=== PATIENT | male | born 1985 | race Two or more races ===

== ENCOUNTER 2020-05-08 05:31 | Day surgery (SDC) | payer OTHER ==
--- NOTE | 2020-05-07 17:35 | Pre-Procedure Note/Attestation ---
Pre-Procedure Note/Attestation Complete Prior to Procedure Planned Procedure: bilateral Procedure Narrative: Septoplasty Submucous resection right inferior turbinate Submucous resection left inferior turbinate Indications for Procedure Pre-Operative Diagnosis: 1. Nasal septal deviation 2. Hypertrophied right inferior turbinate 3. Hypertrophied left inferior turbinate Attestation I attest that I discussed the nature of the procedure; its benefits; risks and complications; and alternatives (and the risks and benefits of such alternatives ), prior to the procedure, with the patient (or the patient's legal telemarketing sales representative). I attest that, if there was a reasonable possibility of needing a blood transfusion, the patient (or the patient's legal telemarketing sales representative) was given the [place] [employer] standardized written summary, pursuant to the [place] Jany Blood Safety Act ([place] Health and Safety Code # 1645, as amended). I attest that I re-evaluated the patient just prior to the surgery and that there has been no change in the patient's H&P. Jw Byrne MD May 07, 2020 17:35
--- NOTE | 2020-05-07 20:15 | History & Physical ---
History of Present Illness General Date patient seen: Apr 29, 2020 Time patient seen: 11:00 Reason for Hospitalization: outpt surgery-nasal Present Illness HPI Nasal airway ov=bstruction secondary to septal deviation and hypertrophied inferior turbinate. Failed nasal steroids and antimhistamines. Allergies: Coded Allergies: No Known Allergies (Unverified , 05/07/20) COVID-19 Screening Contact w/high risk pt: No Recent Travel to affected area: No Experienced COVID-19 symptoms?: No Medication History Scheduled Loratadine (Claritin), 10 MG ORAL DAILY, (Reported) Patient History History Provided By: Patient Healthcare decision maker Resuscitation status Full code Advanced Directive on File Patient History Narrative as above present history Review of Systems Review of Symptoms General ROS: no weight loss or fever Psychological ROS: no depression or mood changes, no memory loss Ophthalmic ROS: no visual changes or eye irritation ENT ROS: + nasal congestion, hearing loss, dizziness Allergy and Immunology ROS: no allergic symptoms or urticaria Hematological and Lymphatic ROS: no swollen glands, unusual bleeding or bruising Endocrine ROS: no polyuria, polydipsia, weight changes, temperature intolerance Respiratory ROS: no cough, shortness of breath, or wheezing Cardiovascular ROS: no chest pain or dyspnea on exertion Gastrointestinal ROS: denies abdominal pain, bright red blood in stool. Musculoskeletal ROS: no myalgias or arthralgias Neurological ROS: no TIA or stroke symptoms Dermatological ROS: no new or changing skin lesions, rashes or pruritis Physical Exam Physical Exam General appearance: alert, cooperative, no distress, appears stated age Head: Normocephalic, without obvious abnormality, atraumatic Eyes: conjunctivae/corneas clear. PERRL, EOM's intact. Fundi benign NOSE: SEPTAL DEVIATION, HYPERTROPHIED INFERIOR TURBINATES. Throat: Lips, mucosa, and tongue normal. Teeth and gums normal Neck: supple, symmetrical, trachea midline, no adenopathy, thyroid: not enlarged, symmetric, no tenderness/mass/nodules, no carotid bruit and no JVD Lungs: clear to auscultation bilaterally Heart: regular rate and rhythm, S1, S2 normal, no murmur, click, rub or gallop Abdomen: soft, non-tender. Bowel sounds normal. No masses, no organomegaly Extremities: extremities normal, atraumatic, no cyanosis or edema Pulses: 2+ and symmetric Skin: Skin color, texture, turgor normal. No rashes or lesions Neurologic: Grossly normal BP 120/80 HR 72 RR 13 Negative Covid-a9 test done at [facility] earlier in the week. No need, he is a healthy 34 yo male. Height (Feet): 6 Height (Inches): 1 Weight (Pounds): 200 Medications none Assessment/Plan Status: stable Assessment/Plan: Nasal septal deviation and hypertrophied inferior turbinates. MIPS Hospital declaration Disposition: Once the patient is stable to leave the hospital, I anticipate the patient will likely be discharged to the following environment: Home Estimated discharge date: 05/08/2020 I spent 70 minutes on this patient's case, and 30 minutes was dedicated to counseling and/or care coordination. MIPS ([employer]it-based Incentive Payment System) Applicable CPT: 97809, 67446 CHECK ALL THAT ARE MET: Measure #5 (CHF): All ages. Prescribe BRIDGETTE/ARB upon discharge for patients with left ventricular systolic dysfunction. If not, the reason is clearly documented in the medical chart. Measure #8 (CHF): All ages. Prescribe a beta kevin upon discharge for patients with left ventricular systolic dysfunction. If not, the reason is clearly documented in the medical chart. Measure #47 Advance care plan or surrogate decision maker documented in the medical record. Measure #130 The provider has documented, updated, or reviewed the patients current medication list and has documented it in the patients note. Measure #374 (All): Send report to referring provider. Measure #407(Sepsis due to MSSA bacteremia): Age 18+ Patient treated with a beta-lactam antibiotic (Nafcillin, Oxacillin or Cefazolin) as definitive therapy. MEDICAL COMPLEXITY High complexity medical decision making (need 2/3 categories) Problem - need 4 points Acute/new problem with new plan for workup (4 points, 1 max) Acute/new problem without additional workup (3 points, 1 max) Unstable chronic problem actively being managed (2 point each, 2 max) Stable chronic problem actively being managed (1 point each, 2 max) Self-limited/transient process (constipation, muscle ache, etc) (1 point each , 2 max) Data - need 4 points Reviewed labs/imaging studies (1 points, 2 max) Independent review of imaging (EKG, xrays, etc) (2 points, 2 max) Discussed case with consult/other MD/RN (2 points, 2 max) High Risk - qualify if have one of the following: Severe exacerbation of acute problem, acute mental status change, IV narcotics , monitoring drug levels (vancomycin, INR, tacrolimus etc) Jw Byrne MD May 07, 2020 20:15
--- NOTE | 2020-05-07 20:18 | Brief Operative Note ---
Immediate Post Operative Note Operative Note Pre-op Diagnosis: 1. Nasal septal deviation 2. Hypertrophied right inferior turbinate 3. Hypertrophied left inferior turbinate Procedure: 1. Septoplasty 2. Submucous resection right inferior turbinates 3. Submucous resection left inferior turbinates Post-op Diagnosis: same as pre-op Surgeon: Jw Byrne Mason Apprentice: none Additional Surgeons: none Anesthesiologist: Bre Anesthesia: general Specimen: none Complications: none Condition: stable Fluids: D5LR Estimated Blood Loss: volume - 25 Drains: none Packing: SinoNasal gel Implant(s) used?: No Jw Byrne MD May 07, 2020 20:18
--- NOTE | 2020-05-07 20:20 | Discharge Instructions ---
Discharge Instructions Discharge Instructions Follow up with: Dr. Byrne next week at his office. Diet: regular Resume Normal Activity?: No Activity: light activity Pneumonia Vaccine: pt refused vaccine Influenza Vaccine (Jun to Nov): pt refused vaccine Return to Work/School on: May 22, 2020 Special Instructions ice to face x 48 hours For Surgical Patients Dressing Care: may change May shower: No For Congestive Heart Failure Reminder Report to your physician any weight gain of 5 pounds or more in one week. Jw Byrne MD May 07, 2020 20:20
[~2020-05-08] VITALS: Ht 185.4 cm; Wt 95.3 kg
[2020-05-08] VITALS (10 sets, daily range): BP systolic 110–117; BP diastolic 58–69
[~2020-05-08 05:31] MED LIST: AMOXICILLIN500 MG ORAL; CLARITIN10 MG ORAL; NORCO 5-325 TA1 EAC1 ORAL
[2020-05-08] MEDS ORDERED: fentaNYL 100 mcg/2 mL IV ONE (07:02)
[2020-05-08] MEDS ORDERED: Midazolam 2mg/2ml Inj ONE (07:02)
[2020-05-08] MEDS ORDERED: Ketorolac 30mg Inj ONE (07:05)
[2020-05-08] MEDS ORDERED: Lidocaine 1% MPF 10mg/ml 5ml ONE (07:05)
[2020-05-08] MEDS ORDERED: Bupivacaine w/Epi 0.5% 30ml Vial INJ ONE (07:17)
[2020-05-08] MEDS ORDERED: Lidocaine 1% 10mg/ml/Epi 0.005mg/ml 30ml vial INJ ONE (07:17)
[2020-05-08] MEDS ORDERED: Cocaine HCl 4% 4ml vial TOPIC ONE (07:17)
[2020-05-08] MEDS ORDERED: LR 1000ml 1,000 ML IVLG SCH (07:23)
--- NOTE | 2020-05-08 07:23 | Anethesia Preoperative Eval ---
Anesthesia Pre-op PMH/ROS General Date of Evaluation: May 08, 2020 Time of Evaluation: 07:20 Anesthesiologist: Aleksandr ASA Score: ASA 2 Mallampati Score Class I : Soft palate, uvula, fauces, pillars visible Class II: Soft palate, uvula, fauces visible Class III: Soft palate, base of uvula visible Class IV: Only hard plate visible Mallampati Classification: Class II Surgeon: Chavez Diagnosis: Nasal septum deviation Surgical Procedure: Septoplasty Anesthesia History: none Family History: no anesthesia problems Allergies: Coded Allergies: No Known Allergies (Unverified , 05/07/20) Medications: see eMAR Patient NPO?: Yes Past Medical History Cardiovascular: Denies: HTN, CAD, MO, valve dz, arrhythmia, other Pulmonary: Denies: asthma, COPD, RICK, other Gastrointestinal/Genitourinary: Reports: GERD; Denies: CRI, ESRD, other Neurologic/Psychiatric: Denies: dementia, CVA, depression/anxiety, TIA, other Endocrine: Denies: DM, hypothyroidism, steroids, other HEENT: Denies: cataract (L), cataract (R), glaucoma, [place] (L), [place] (R), other Hematology/Immune: Denies: anemia, DVT, bleeding disorder, other Musculoskeletal/Integumentary: Denies: OA, RA, DJD, DDD, edema, other PMH Narrative: as above PSxH Narrative: Dental Anesthesia Pre-op Phys. Exam Physician Exam Last Vital Signs Date Time Temp Pulse Resp B/P (MAP) Pulse Ox O2 Delivery O2 Flow Rate FiO2 05/08/20 06:37 Room Air 05/08/20 06:36 97.8 63 20 114/58 98 Constitutional: NAD Neurologic: CN 2-12 intact Cardiovascular: RRR, no M/R/G Respiratory: CTA Gastrointestinal: S/NT/ND Airway Exam Mallampati Score: Class II MO: full Neck: Flexible ROM: full Teeth: intact Dentures: no upper, no lower Anesthesia Pre-op A/P Labs see chart Risk Assessment & Plan Assessment: ASA 2 Plan: GA with LMA Status Change Before Surgery: No Pre-Antibiotics Drug: Ancef 2gr Given Within 1 Hr of Incision: Yes Time Given: 07:50 Jonny Brandon MD May 08, 2020 07:23
[2020-05-08] MEDS ORDERED: Ketorolac 30mg Inj IV PRN (07:30)
[2020-05-08] MEDS ORDERED: DiphenhydrAMINE 50mg/ml Inj IVP PRN (07:30)
[2020-05-08] MEDS ORDERED: Sterile Water Irrig 1000ml IRRIG ONE (07:30)
[2020-05-08] MEDS ORDERED: LR 1000ml ONE (07:30)
[2020-05-08] MEDS ORDERED: NS Irrig 1000ml ONE (07:30)
[2020-05-08] MEDS ORDERED: Meperidine 25mg/0.5ml Inj (FOR RIGORS ONLY) IV PRN (07:30)
[2020-05-08] MEDS ORDERED: Metoclopramide 10mg/2ml Inj IVP PRN ×2 (07:30→08:30)
[2020-05-08] MEDS ORDERED: HYDROmorphone 1mg/ml Carpuject SUBQ PRN (08:30)
[2020-05-08] MEDS ORDERED: HYDROcodone/Acetamin 5/325 tab ORAL PRN (08:30)
--- NOTE | 2020-05-08 08:41 | Immediate Post-Op Evaluation ---
Immediate Post-Op Evalulation Immediate Post-Op Evalulation Procedure: Septoplasty, turbinate ablasion Date of Evaluation: May 08, 2020 Time of Evaluation: 08:40 IV Fluids: 800 Blood Products: none Estimated Blood Loss: <50 Urinary Output: none Blood Pressure Systolic: 116 Blood Pressure Diastolic: 68 Pulse Rate: 72 Respiratory Rate: 18 O2 Sat by Pulse Oximetry: 99 Temperature (Fahrenheit): 97.8 Pain Score (1-10): 1 Nausea: No Vomiting: No Complications none Patient Status: awake, patent, none Hydration Status: adequate Jonny Brandon MD May 08, 2020 08:41
--- NOTE | 2020-05-08 09:43 | 48 Hour Post Anesthesia Eval ---
Post Anesthesia Evaluation Procedure: Septoplasty, turbinate ablasion Date of Evaluation: May 08, 2020 Time of Evaluation: 09:42 Blood Pressure Systolic: 116 0: 69 Pulse Rate: 68 Respiratory Rate: 20 Temperature (Fahrenheit): 97.6 O2 Sat by Pulse Oximetry: 99 Airway: patent Nausea: No Vomiting: No Pain Intensity: 1 Hydration Status: adequate Cardiopulmonary Status: stable Mental Status/LOC: patient returned to baseline Follow-up Care/Observations: n/a Post-Anesthesia Complications: none Follow-up care needed: ready to discharge Jonny Brandon MD May 08, 2020 09:43
--- NOTE | 2020-05-08 10:30 | Operative Note - Dictated ---
DATE OF OPERATION: 05/08/2020 SURGEON: Jw Byrne MD. ELEVATED GUARD: None. ANESTHESIOLOGIST: Jonny Brandon MD. ANESTHESIA: LMA general anesthesia 17 mL of 1% lidocaine with 1:100,000 epinephrine and Marcaine 0.5% with 1:200,000 epinephrine in a 50:50 mixture. Additionally, 4 mL of 4% topical cocaine placed on four nasal pledgets, two on either nostril and accounted for at the end of the case. INDICATION FOR SURGERY: Nasal airway obstruction secondary to septal deviation and hypertrophied right and left inferior turbinates. Patient has failed nasal steroid sprays and antihistamines. PREOPERATIVE DIAGNOSES: Nasal airway obstruction secondary to septal deviation and hypertrophied right and left inferior turbinates. Patient has failed nasal steroid sprays and antihistamines. POSTOPERATIVE DIAGNOSES: Nasal airway obstruction secondary to septal deviation and hypertrophied right and left inferior turbinates. Patient has failed nasal steroid sprays and antihistamines. FINDINGS: Septal bowing to the right 90% and a spur about 60% on the left from the vomer. PROCEDURE: 1. Septoplasty. 2. Submucous resection, right inferior turbinate. 3. Submucous resection, left inferior turbinate. TECHNIQUE: Patient prepped and draped in usual manner via LMA general anesthesia. Patient was injected with the aforementioned lidocaine, Marcaine, and epinephrine. Nasal pledgets with 4% cocaine were placed as well. Initially, I addressed the left inferior turbinate. Made an incision anterior inferior with a 15 blade. I then passed the radiofrequency wand setting of 6 coating with saline gel x2 for 10 seconds each. I then outfractured the inferior turbinate on the left. I turned my attention to the right inferior turbinate. Incision made with 15 blade. Radiofrequency wand coated with saline gel setting of 6 passed for 10 seconds x2. I then outfractured with a Boies elevator. At the end of doing both inferior turbinates, I was able to almost turn the butter knife 360 degrees, but not quite. I then addressed the septal deviation making an incision with a #15 blade elevating the with a dental elevator. I then used a small angled scissors, made an incision on the top, loosened it inferiorly off the vomer with a dental elevator, and removed with a straight Joan. I turned my attention to the vomer on the left side. Made a small incision underneath. Cleaned off the periosteum, perichondrium. I then used an osteotome to remove the vomer. I then placed a 4-0 plain suture through the Sujit incision I had made for the septum and put the flap down and sewed in with 4-0 plain suture as well as the flap for the vomer on the left side. There were no perforations. Patient extubated, alert, awake, and breathing on his own in the operating room prior to transfer to the recovery room. ESTIMATED BLOOD LOSS: 25 mL. COMPLICATIONS: None. DRAINS: None. Sinonasal gel one syringe between the two nostrils. Before placing the sinonasal gel, I was able to turn the butter knife 360 degrees without difficulty. Mustache dressing placed. Jw Byrne M.D. DR: STEVE JOB#: [id number] CC:
== END 2020-05-08 10:20 | disposition home or self-care (01) ==
LOC: SUR 05:31
DX: J34.89 Other specified disorders of nose and nasal sinuses (principal); J34.2 Deviated nasal septum; J34.3 Hypertrophy of nasal turbinates; K21.9 Gastro-esophageal reflux disease without esophagitis
CPT/HCPCS: 30140; 30520; 94003; C9046; J0690; J1885; J2250; J2405; J2704; J3010; J7120; U0002; 94150